=== PATIENT | female | born 1995 | race Caucasian/White ===

== ENCOUNTER 2020-05-13 12:32 | Outpatient (RCR) | payer BC, SELFPAY ==
[2020-05-13 13:05] VITALS: BP 120/74; PULSE 96
== END 2020-05-26 07:13 | disposition home or self-care (01) ==
LOC: ANHOBOP 12:32
PROVIDERS: PCP Family Medicine Adolescent Medicine; Visit Provider Obstetrics & Gynecology
DX: O36.0930 Maternal care for other rhesus isoimmunization, third trimester, not applicable or unspecified (principal); Z3A.37 37 weeks gestation of pregnancy
CPT/HCPCS: 59025

== ENCOUNTER 2020-05-17 23:00 | Inpatient (IN) | payer BC, SELFPAY ==
[2020-05-17 23:17] VITALS: BP 117/72; PULSE 94
[2020-05-17 23:45] VITALS: TEMP 36.8
[2020-05-17 23:53] LABS: Basophils Absolute Auto 0.1 K/mm3 (0.0-0.1); Basophils Percent Auto 0.3 % (0.2-1.2); Eosinophils Absolute Auto 0.1 K/mm3 (0-0.3); Eosinophils Percent Auto 0.5 % (0-4.4); Hematocrit 30.6 % (37.0-47.0); Immature Granulocyte Absolute 0.09 K/mm3 (0.00-0.031); Immature Granulocyte Percent A 0.6 % (0-0.5); Lymphocytes Absolute Auto 1.86 K/mm3 (0.9-3.2); Lymphocytes Percent Auto 12.3 % (18.3-44.2); Mean Corpuscular HGB Conc 32.7 g/dl (32-36); Mean Corpuscular Hemoglobin 27.7 pg (26-34); Mean Corpuscular Volume 84.8 fl (80-100); Mean Platelet Volume 9.7 fl (7.4-10.4); Monocytes Percent Auto 6.3 % (2.6-8.5); Neutrophils Absolute Auto 12.1 K/mm3 (1.3-6.7); Platelet Count Result 394 k/mm3 (150-375); Red Blood Count 3.61 M/mm3 (4.2-5.4); Red Cell Distribution Width 13.5 % (11.5-14.5); White Blood Count 15.1 K/mm3 (4.5-10.0)
[2020-05-17 23:59] VITALS: BMI 33.7
[2020-05-18] VITALS (83 sets, daily range): BP systolic 85–129; BP diastolic 41–108; PULSE 68–121; RESP 17; TEMP 36.6–37.2; O2SAT 99–100
--- NOTE | 2020-05-18 00:01 | LDADM ---
This patient, Carmen Landin, was admitted to Labor/Delivery/Recovery 104 on 05/17/20 at 23:00. Plans for labor, pain management and were discussed with patient. Patient/family oriented to hospital policies and general routines including ID bracelet, bed and alarms, visiting hours, pain management, procedures, bathroom and other care routines, personal items, smoking policy, room service/diet and guest tray routines, infant security routines, and visiting hours. Patient/Family are encouraged to report perceived risks to care and to ask questions if they do not understand what they are told or what they should do. See OBIX for further documentation.
--- NOTE | 2020-05-18 01:01 | WPDANESEPP ---
Anes - Eval Pre Procedure Procedure: labor epidural Date/Time: 05/18/20 01:01 Surgeon: fabby Pre Op Diagnosis: Leaking Patient Data Age: 24 Gender: F Height: 1.63 m Weight: 89 kg Last Vital Signs Temp 36.8 C 05/17/20 23:45 Pulse 94 05/17/20 23:17 BP 117/72 05/17/20 23:17 Allergies Allergy/AdvReac Type Severity Reaction Status Date / Time No Known Allergies Allergy Verified 04/27/20 13:42 Home Medications Medication Instructions Recorded Confirmed Type PNV [id number] 1 tablet PO DAILY 04/27/20 04/27/20 History [ Gummies] valacyclovir [Valtrex] 500 mg PO DAILY 04/27/20 05/17/20 History Laboratory Tests 05/17/20 05/17/20 23:47 23:47 WBC 15.1 K/mm3 H K/mm3 (4.5-10.0) RBC 3.61 M/mm3 L M/mm3 (4.2-5.4) Hgb 10.0 g/dL L g/dL (12.0-15.0) Hct 30.6 % L % (37.0-47.0) MCV 84.8 fl fl (80-100) MCH 27.7 pg pg (26-34) MCHC 32.7 g/dl g/dl (32-36) RDW 13.5 % % (11.5-14.5) Plt Count 394 k/mm3 H k/mm3 (150-375) MPV 9.7 fl fl (7.4-10.4) Immature Gran % (Auto) 0.6 % H % (0-0.5) Neut % (Auto) 80.0 % H % (45.5-73.1) Lymph % (Auto) 12.3 % L % (18.3-44.2) [place] % (Auto) 6.3 % % (2.6-8.5) Eos % (Auto) 0.5 % % (0-4.4) Baso % (Auto) 0.3 % % (0.2-1.2) Lymph # (Auto) 1.86 K/mm3 K/mm3 (0.9-3.2) [place] # (Auto) 1.0 K/mm3 H K/mm3 (0.1-0.6) Eos # (Auto) 0.1 K/mm3 K/mm3 (0-0.3) Baso # (Auto) 0.1 K/mm3 K/mm3 (0.0-0.1) Abs Immat Gran (auto) 0.09 K/mm3 H K/mm3 (0.00-0.031) Absolute Neuts (auto) 12.1 K/mm3 H K/mm3 (1.3-6.7) Absolute Nucleated RBC 0.0 K/mm3 K/mm3 (0.0-0.012) Nucleated RBC % 0.0 % % (0.0-0.2) RPR Pending Patient hx anesthesia problems: none Family hx anesthesia problems: none [facility] Family History Family History (Updated 04/27/20 @ 13:44 by Maryanne Enriquez RN) Other No pertinent family history Social History Social History Smoking status: Never smoker Substance use: never Gender identity (if verbalized by the patient): Female Spiritual care concerns: No Exam Day of Procedure 05/18/20 01:01
[2020-05-18] MEDS: LACTATED RINGERS 1,000 ML 125 ML IV CONT ×3 (02:02→08:07)
[2020-05-18] MEDS: OXYTOCIN 30 UNITS/NS 500 ML 30 UNITS/500 ML BAG IV CONT (02:02)
[2020-05-18 07:09] LABS: Rapid Plasma Reagin Non-Reactive (NonReactive)
--- NOTE | 2020-05-18 07:40 | WPDOBADMIT ---
Obstetrics - Admit Note Admission Note: 24 y/o G1 @ 38w4d here with srom. Cervix /-2 Forebag noted and ruptured Anticipate record reviewed. No pertinent additions to the history and/or any subsequent changes in the physical findings that are not consistent with the expected course of the were found. Additions to the history and/or subsequent changes in the physical findings follow. None.
[2020-05-18] MEDS: fentaNYL CITRATE INJ (*CRX) 100 MCG/2 ML VIAL 50 MCG IV PUSH (08:07)
[2020-05-18] MEDS: ONDANSETRON INJ 4 MG/2 ML VIAL IV PUSH (12:48)
[2020-05-18] MEDS: OXYTOCIN 30 UNITS/NS 500 ML 30 UNITS/500 ML BAG 125 UNITS IV CONT (16:49)
[2020-05-18] MEDS: IBUPROFEN 600 MG TABLET PO (18:57)
[2020-05-18] MEDS: BENZOCAINE 20% AER SPR (*SP) 56 GM CAN 1 SPRAY TOPICAL (18:58)
[2020-05-18] MEDS: WITCH HAZEL 40 PADS 1 PAD TOPICAL (18:58)
--- NOTE | 2020-05-18 19:20 | OBPPTRN ---
Patient transferred to post room #288 via wheelchair with in crib. Support person present. Oriented to unit, room, information board, rooming in, admission packet and security measures. Patient verbalizes understanding.
[2020-05-19 04:05] VITALS: BP 116/69; PULSE 89; RESP 15; TEMP 36.8
[2020-05-19 04:45] LABS: Hematocrit 27.5 % (37.0-47.0); Hemoglobin 8.7 g/dL (12.0-15.0)
--- NOTE | 2020-05-19 07:22 | PM.OBPNVD ---
OB - PN: Subj Subjective Date/time seen: 05/19/20 07:22 Patient comments: no complaints baby status: doing well OB - PN: Obj Data Labs CBC & Chem 7: 05/19/20 04:05 Labs: Laboratory Results - last 24 hr 05/19/20 04:05 Hgb 8.7 L Hct 27.5 L OB - PN A/P Plan day: 1 Plan: routine care and discharge home Time Spent With Patient Time: Total time spent is greater than 50% in coordination of care (as documented) at patient's floor/unit and/or counseling patient: Review of Systems Review of Systems: All systems reviewed & are unremarkable except as noted in HPI and below Exam Const: General: cooperative Orientation/consciousness: patient oriented x3 Psych: Affect: normal affect Thought process: Normal thought process present Thought content: Yes Normal thought content present Insight: Good insight present (Psych) Judgement: Good judgement present (Psych)
--- NOTE | 2020-05-19 07:24 | P.DS_ITS ---
DS: Admitting Diagnosis Admitting Diagnosis Admitting Diagnosis: labor OB - DS: Summary OB Procedures : None OB Procedures Intrapartum: Spontaneous Vag Delivery OB Procedures: : None Time Spent with Patient Time attestation: Total time spent providing and/or coordinating discharge services: DS: Data Data Completed and Pending Pending studies at discharge: Pending at discharge 05/18/20 16:27 Surgical [PTH] Routine Labs on day of discharge: Labs from last 24 hours 05/19/20 04:05 Hgb 8.7 L Hct 27.5 L Discharge Plan Discharge Attending physician on discharge: Sada Lima Discharging Clinician: Gaby Rabago Patient Disposition: Home, Self-Care Activity: pelvic rest Diet: regular Patient Instructions: Antibiotic Form Stand Alone Forms: General Discharge Information Follow-up/Referrals: Dimple Lerma CNM [Certified Nurse Supervisor [employer]] - 4 Weeks Discharge Medications: Continued valacyclovir [Valtrex] 500 mg Tablet 500 mg PO DAILY RF: 0 Gummies 400 mcg-35 mg- 25 mg-5 mg Tablet,Chewable 1 tablet PO DAILY RF: 0 Date of admission: 05/17/20 23:00 Primary Care Provider: Matthew Fink Admitting Provider: Sada Lima Attending physician on admission: Sada Lima Condition: Stable
--- NOTE | 2020-05-19 07:41 | WPDANLDPN2 ---
Anes-Prog Note L&D Date/Time: 05/19/20 07:41 Comfortable throughout: labor and delivery Neuraxial method: epidural Epidural/Spinal procedure site: clean & non-tender Neuro status: Neuro function grossly intact. Cardiovascular status: normal Respiratory status: normal Airway patency: baseline Mental status: baseline Post-Op hydration status: normal Vital Signs: Last Vital Signs Temp 36.8 C 05/19/20 04:05 Pulse 89 05/19/20 04:05 Resp 15 05/19/20 04:05 BP 116/69 05/19/20 04:05 Pulse Ox 100 05/18/20 09:13 Pain score (VAS): 0 I/O: Intake & Output 05/18/20 05/18/20 05/19/20 15:59 23:59 07:59 Intake Total 1000 Output Total 153 Balance 1000 -153 Post-procedural complaints: none Patient feedback: Patient satisfied with anesthetic care.
[2020-05-19 08:30] VITALS: BP 103/61; PULSE 96; RESP 18; TEMP 37.2; O2SAT 99
--- NOTE | 2020-05-19 10:55 | PC.NURSE ---
Mother called out for assist with feeding. Consulted with patient, mother reports has been sleepy with feedings. Mother has nipple discomfort with latch during first part of the feeding that quickly resolves. Reviewed nipple care of lanolin, warm compresses several times per day until tenderness resolves. Reviewed feeding cues, frequencies, duration of feedings, feeding elimination flow sheet, and signs of adequate intake. Demonstrated stimulation techniques to wake infant for feeding. Assisted with to breast. Reviewed positioning/alignment in cross cradle , holding breast in U hold and guided asymmetrical latch on. was able to latch within a few attempts. nursed eagerly, with steady draws and frequent swallowing noted. Latch was shallow. Reviewed signs of a correct latch, effective nursing and suck swallow ratio. was able to maintain latch. Mother reported tenderness at times, infant had slipped to shallow latch. Demonstrated how to adjust latch more deeply while feeding. Mother quickly reports she can feel is latched more deeply and has minimal tenderness. Suggested to stimulate infant while feeding to keep infant awake and nursing effectively for increased stimulation and increased intake. Instructed mother to call out for RN assistance if she is unable to latch for feeding or she has discomfort with nursing.
[2020-05-19 13:07] VITALS: BP 111/76; PULSE 95; RESP 18; TEMP 36.8; O2SAT 100
--- NOTE | 2020-05-19 13:30 | PC.NURSE ---
Mother reports she independently latched last feeding without difficulties or discomfort. Mother states she wishes to be discharged at 24 hours. Mother is feeding as required and waking infant to feed if needed. is currently meeting outcomes for, output, jaundice and feeding frequencies. Mother states she feels confident to continue effective at home. Reviewed transition to breast milk, signs of adequate intake, and engorgement/relief. Instructed to call ICP if intake/output less than required. Reviewed regular medications mother is taking. Information provided per Bonnie. Reviewed community resources on the [employer] website and in the Mom/Baby guide. Information on outpatient services provided. Mother has no further questions at this time.
[2020-05-19 16:00] VITALS: BP 112/71; PULSE 91; RESP 18; TEMP 36.8
[2020-05-19] MEDS: DOCUSATE SODIUM LIQ 100 MG/10 ML UDC PO (16:08)
[2020-05-19] MEDS: MULTIVIT W/ IRON, MINERALS 15 ML LIQUID (*BKC) PO (16:08)
[2020-05-19] MEDS: FERROUS SULFATE LIQUID 325 MG/7.4 ML ELIXIR PO (16:09)
[2020-05-20 07:49] VITALS: BP 107/64; PULSE 86; RESP 20; TEMP 37.1; O2SAT 99
--- NOTE | 2020-05-22 02:51 | PM.OBPRVD ---
OB - Delivery Note Procedure Delivery date: 05/18/20 Intrapartal events: None Induction method: none Delivery monitor: external FHT and external uterine Route of delivery: Episiotomy description: None Laceration Description: Labial (right labial) Delivery repair: vicryl Anesthesia type: Epidural Baby Date of : 05/18/20 Time of : 16:17 Weeks of gestation at delivery: 38 gender: Male Weight (pounds): 7 Weight (ounces): 9 presentation: vertex position: Right Occiput Anterior Placenta delivery description: Spontaneous cord vessel description: Delayed Cord Clamping score one minute: 9 score five minutes: 9
== END 2020-05-19 18:20 | disposition home or self-care (01) | DRG 807 ==
LOC: ANHLDR 23:52 → ANHOB2 05-18 19:22
PROVIDERS: Advanced Practice Midwife; Admitting Provider Obstetrics & Gynecology; PCP Family Medicine Adolescent Medicine; Visit Provider Obstetrics & Gynecology
DX: O71.82 Other specified trauma to perineum and vulva (principal); Z37.0 Single live birth; Z3A.38 38 weeks gestation of pregnancy
CPT/HCPCS: 36415; 85014; 85018; 85025; 86592; 86850; 86900; 86901; 88307; A9270; J2405; J2590; J2795; J3010; J7120

== ENCOUNTER 2022-04-11 14:10 | Emergency (ER) | payer BC, SELFPAY ==
--- NOTE | ~2022-04-11 | XR_ITS ---
XR chest 2V 04/11/2022 14:52 Indication: Cough and fever. Right rib pain. Procedure: 2 view chest Comparison: No prior studies for comparison. Findings: There is focal consolidation of the superior segment of the right lower lobe, consistent wi th pneumonia. No significant effusion. No pneumothorax. Heart size normal. No acute osseous abnormali ty. Impression: 1: Right lower lobe consolidation, compatible with pneumonia. Reviewed, dictated and finalized at location A. K SETTER OPERATOR Impression: 1: Right lower lobe consolidation, compatible with pneumonia.
[2022-04-11 14:24] VITALS: BP 134/101; PULSE 117; RESP 18; TEMP 38.6; O2SAT 97
[2022-04-11 15:29] LABS: Basophils Absolute Auto 0.1 K/mm3 (0.0-0.1); Basophils Percent Auto 0.3 % (0.2-1.2); Eosinophils Absolute Auto 0.1 K/mm3 (0-0.3); Eosinophils Percent Auto 0.7 % (0-4.4); Hematocrit 40.1 % (37.0-47.0); Hemoglobin 13.9 g/dL (12.0-15.0); Immature Granulocyte Absolute 0.07 K/mm3 (0.00-0.031); Immature Granulocyte Percent A 0.4 % (0-0.5); Lymphocytes Absolute Auto 1.18 K/mm3 (0.9-3.2); Lymphocytes Percent Auto 7.2 % (18.3-44.2); Mean Corpuscular HGB Conc 34.7 g/dl (32-36); Mean Corpuscular Volume 89.3 fl (80-100); Mean Platelet Volume 9.2 fl (7.4-10.4); Monocytes Absolute Auto 0.9 K/mm3 (0.1-0.6); Monocytes Percent Auto 5.7 % (2.6-8.5); Neutrophils Percent Auto 85.7 % (45.5-73.1); Platelet Count Result 416 k/mm3 (150-375); Red Blood Count 4.49 M/mm3 (4.2-5.4); Red Cell Distribution Width 12.1 % (11.5-14.5); White Blood Count 16.4 K/mm3 (4.5-10.0)
[2022-04-11 15:39] LABS: Alanine Aminotransferase 17 U/L (6-35); Albumin Level 4.9 g/dL (3.5-5.1); Alkaline Phosphatase 79 U/L (38-126); Anion Gap 10 mmol/L (8-16); Aspartate Amino Transferase 25 U/L (14-36); Bilirubin,Total 0.7 mg/dL (0.2-1.3); Blood Urea Nitrogen 7 mg/dL (7-17); Calcium 9.2 mg/dL (8.4-10.2); Carbon Dioxide 29 mmol/L (22-30); Chloride 100 mmol/L (98-107); Estimated CRCL calculation 92 ml/min; Estimated Glomerular Filt Rate > 60; Glucose 98 mg/dL (65-110); Sodium 139 mmol/L (137-145)
[2022-04-11 16:03] LABS: Influenza A QL RT-PCR Negative (Negative); Influenza B QL RT-PCR Negative (Negative); SARS-CoV-2 RNA PCR Negative
--- NOTE | 2022-04-11 16:15 | ED.URI ---
HPI - URI/Sore Throat General Chief Complaint: Upper Respiratory Infection Stated Complaint: abdominal pain Time Seen by Provider: 04/11/22 15:52 History of Present Illness HPI Narrative: Patient is a 26-year-old female presenting with chest pain and cough. Patient states that she has had viral respiratory infections for the last week. States that she has been taking [id number] cough suppressants. States that she has had such severe coughing fits that she has vomited. States that this morning she woke up with right-sided lower chest pain that is worse with movement, coughing, deep breathing so she came in for evaluation. No palpitations or syncope. She denies significant shortness of breath. No leg swelling. No abdominal pain, diarrhea, dysuria. Related Data Home Medications Medication Instructions Recorded Confirmed PNV 153-FA 400 mcg-om3 35 mg-dha 1 tablet PO DAILY 04/27/20 04/27/20 25 mg-epa 5 mg-fish oil chew tablet ( Gummies) valacyclovir 500 mg tablet 500 mg PO DAILY 04/27/20 05/17/20 (Valtrex) Allergies Allergy/AdvReac Type Severity Reaction Status Date / Time No Known Allergies Allergy Verified 04/27/20 13:42 Review of Systems Review of Systems: All systems reviewed & are unremarkable except as noted in HPI and below PMFSH Family History Family History Other No pertinent family history Social History Social History Smoking status: Never smoker Substance use: never Gender identity (if verbalized by the patient): Female Spiritual care concerns: No Exam Narrative: GENERAL: Well-appearing, well-nourished, and in no acute distress. HEAD: Normocephalic, atraumatic. EYES: PERRLA and EOMI. ENT: Nares clear, no rhinorrhea or epistaxis. Mucous membranes moist. NECK: Supple. CHEST: Crackles right lung HEART: Tachycardic, regular rhythm; mild tenderness over lateral right lower ribs ABDOMEN: Soft, nontender, nondistended EXTREMITIES: Normal range of motion. No edema. SKIN: Warm, dry, no rash. NEURO: No focal deficits. Alert and oriented x3. PSYCH: Normal mood and affect. Course Vital Signs Vital signs: Vital Signs Temperature 101.4 F H 04/11/22 14:24 Pulse Rate 117 H 04/11/22 14:24 Respiratory Rate 18 04/11/22 14:24 Blood Pressure 134/101 H 04/11/22 14:24 Pulse Oximetry 97 04/11/22 14:24 Oxygen Delivery Room Air 04/11/22 14:24 Temperature 101.4 F H 04/11/22 14:24 Pulse Rate 92 04/11/22 17:56 Respiratory Rate 16 04/11/22 17:56 Blood Pressure 103/78 04/11/22 17:56 Pulse Oximetry 97 04/11/22 17:56 Oxygen Delivery Room Air 04/11/22 14:24 MDM - URI/Sore Throat MDM Narrative Medical decision making narrative: Patient is a 26-year-old female presenting with right-sided chest pain and cough. Patient is febrile and tachycardic in the 110s. Saturating well on room air. Exam remarkable for the above. Chest x-ray is concerning for pneumonia in her right lung. Blood work with leukocytosis. Fluids, antibiotics, Toradol have been ordered. On reevaluation, the patient is resting comfortably. Her heart rate has normalized following fluids and Toradol. Advise close PCP follow-up. Discussed appropriate supportive care. Appropriate return precautions given. Antibiotics sent to her pharmacy. Discharged in stable condition. Differential Diagnosis Differential diagnosis: Likely upper respiratory infection, sinusitis, viral infection, bronchitis, influenza and pharyngitis Lab Data 04/11/22 15:20 04/11/22 15:20 Labs: Lab Results 04/11/22 04/11/22 04/11/22 Range/Units 15:20 15:20 15:20 WBC 16.4 H (4.5-10.0) K/mm3 RBC 4.49 (4.2-5.4) M/mm3 Hgb 13.9 D (12.0-15.0) g/dL Hct 40.1 (37.0-47.0) % MCV 89.3 (80-100) fl MCH 31.0 (26-34) pg MCHC 34.7 (32-36) g
[2022-04-11] MEDS: KETOROLAC 15 MG/ML VIAL (*BKC) IV PUSH (16:34)
[2022-04-11] MEDS: SODIUM CHLORIDE 0.9% IV 1,000 ML 999 ML IV CONT (16:35)
[2022-04-11] MEDS: AMPICILLIN SULB 1.5 GM/NS 50ML 1.5 GM/50 ML VIAL IVPB (16:36)
[2022-04-11 17:56] VITALS: BP 103/78; PULSE 92; RESP 16; O2SAT 97
== END 2022-04-11 18:52 | disposition home or self-care (01) ==
PROVIDERS: Emergency Provider Emergency Medicine; PCP Family Medicine Adolescent Medicine
DX: J18.9 Pneumonia, unspecified organism (principal); Z20.822 Contact with and (suspected) exposure to COVID-19
CPT/HCPCS: 36415; 71046; 80053; 85025; 87636; 96365; 96366; 96368; 96375; 99284; J0295; J0456; J1885; J7030

== ENCOUNTER 2022-10-27 22:23 | Emergency (ER) | payer BC, SELFPAY ==
[2022-10-27 22:25] VITALS: BP 123/88; PULSE 110; RESP 18; TEMP 36.1; O2SAT 100
[2022-10-27 22:49] LABS: Basophils Absolute Auto 0.1 K/mm3 (0.0-0.1); Basophils Percent Auto 0.3 % (0.2-1.2); Eosinophils Percent Auto 0.1 % (0-4.4); Hematocrit 42.4 % (37.0-47.0); Hemoglobin 15.1 g/dL (12.0-15.0); Immature Granulocyte Percent A 0.6 % (0-0.5); Lymphocytes Absolute Auto 2.24 K/mm3 (0.9-3.2); Lymphocytes Percent Auto 12.8 % (18.3-44.2); Mean Corpuscular HGB Conc 35.6 g/dl (32-36); Mean Corpuscular Hemoglobin 31.9 pg (26-34); Mean Corpuscular Volume 89.5 fl (80-100); Mean Platelet Volume 10.1 fl (7.4-10.4); Monocytes Percent Auto 5.7 % (2.6-8.5); Neutrophils Absolute Auto 14.1 K/mm3 (1.3-6.7); Neutrophils Percent Auto 80.5 % (45.5-73.1); Platelet Count Result 427 k/mm3 (150-375); Red Blood Count 4.74 M/mm3 (4.2-5.4); Red Cell Distribution Width 11.8 % (11.5-14.5); White Blood Count 17.5 K/mm3 (4.5-10.0)
[2022-10-27 22:56] LABS: Appearance Urine Cloudy (Clear); Bacteria Urine 1+ /hpf; Bilirubin Urine Negative (Negative); Blood Urine Negative (Negative); Color Urine Yellow (Yellow); Glucose Urine UA Negative (Negative); Ketones Urine 4+ mg/dL (Negative); Leukocyte Esterase Ur Trace LEU/UL (Negative); Nitrate Urine Negative (Negative); Protein Urine 1+ mg/dL (Negative); RBC Urine 0-2 /hpf (0-2); Specific Grav Ur 1.026 (1.001-1.035); Squamous Epithelial Cell Urine Many /hpf (Few); WBC Urine 0-5 /hpf; pH Urine 5.5 (5.0-9.0)
[2022-10-27 23:01] LABS: Alanine Aminotransferase 15 U/L (6-35); Albumin Level 5.2 g/dL (3.5-5.1); Alkaline Phosphatase 63 U/L (38-126); Anion Gap 19 mmol/L (8-16); Aspartate Amino Transferase 23 U/L (14-36); Bilirubin,Total 1.4 mg/dL (0.2-1.3); Blood Urea Nitrogen 11 mg/dL (7-17); Calcium 9.9 mg/dL (8.4-10.2); Carbon Dioxide 17 mmol/L (22-30); Chloride 96 mmol/L (98-107); Estimated CRCL calculation 106 ml/min; Estimated Glomerular Filt Rate > 60; Glucose 102 mg/dL (65-110); Lipase 517 U/L (23-300); Potassium 4.1 mmol/L (3.4-5.0); Sodium 132 mmol/L (137-145)
[2022-10-27 23:21] LABS: Add Urine Microscopic? YES
[2022-10-28 04:17] VITALS: BP 108/77; PULSE 77; RESP 15; TEMP 36.9; O2SAT 99
[2022-10-28] MEDS: METOCLOPRAMIDE HCL INJ 10 MG/2 ML VIAL IV PUSH (05:27)
[2022-10-28] MEDS: ONDANSETRON INJ 4 MG/2 ML VIAL IV PUSH (05:28)
--- NOTE | 2022-10-28 07:12 | ED.GENADULT ---
HPI - General Adult General Chief complaint: Nausea/Vomiting/Diarrhea Stated complaint: dehydration Time Seen by Provider: 10/28/22 04:33 History of Present Illness HPI narrative: This is a at 6 weeks gestation presenting ED with nausea vomiting x3 days. Patient has been unable to keep down water. She eventually called her primary care physician and was instructed to come to the hospital. The patient denies fever chills, congestion diarrhea abdominal pain vaginal bleeding or urinary symptoms. Related Data Allergies Allergy/AdvReac Type Severity Reaction Status Date / Time No Known Allergies Allergy Verified 10/27/22 22:23 [facility] Family History Family History Other No pertinent family history Social History Social History Smoking status: Never smoker Substance use: never Gender identity (if verbalized by the patient): Female Spiritual care concerns: No Exam Narrative: APPEARANCE: No apparent distress. Head: atraumatic. EYES: EOMI, NOSE: Atraumatic NECK: Trachea midline RESPIRATORY: No increased rate of breathing CARDIOVASCULAR: RRR, ABDOMINAL: Non-distended Soft nontender no guarding or rebound point of care OB ultrasound revealed a pole with visible heart rate. Too small to measure with transabdominal ultrasound. MUSCULOSKELETAl: No obvious deformities NEURO: Alert. Moving 4/4 extremities SKIN:: Warm, dry. Normal color PSYCHIATRIC: Normal affect Course Vital Signs Vital signs: Vital Signs Temperature 97 F L 10/27/22 22:25 Pulse Rate 110 H 10/27/22 22:25 Respiratory Rate 18 10/27/22 22:25 Blood Pressure 123/88 10/27/22 22:25 Pulse Oximetry 100 10/27/22 22:25 Oxygen Delivery Room Air 10/27/22 22:25 Temperature 98.4 F 10/28/22 04:17 Pulse Rate 77 10/28/22 04:17 Respiratory Rate 15 10/28/22 04:17 Blood Pressure 108/77 10/28/22 04:17 Pulse Oximetry 99 10/28/22 04:17 Oxygen Delivery Room Air 10/27/22 22:25 Medical Decision Making MDM Narrative Medical decision making narrative: -Course: 26-year-old female presenting with persistent nausea and vomiting. Lab work was consistent with hyperemesis gravidarum. Patient was given 2 L of fluid and antiemetics. She is now able to tolerate p.o.. On re-evaluation patient's vital signs are stable. She is resting comfortably. Patient is comfortable going home with antiemetics and following up with her OBGYN. -DDX includes but is not limited to: Hyperemesis gravidarum, nausea vomiting of , viral syndrome -Co-morbidities complicating care: 6 weeks -Social determinants of health: housewife, lives with her . -Hx from independent Sources: bedside -Independent interpretation of studies: White blood cell count 17.5. No evidence of infection at this time. urine was positive for ketones. Patient was slightly acidotic with mild anion gap. Beta hCG 115,000. point of care Ob ultrasound showed a pole with flickering heart rate although is too sma to measure. Urine not indicative infection. -Interventions: 2 L D5 normal saline, 25 mg IV vitamin B6, 4 mg Zofran, 10 mg of Reglan -Shared decision making / Disposition: discharged -RX Zofran ODT, vitamin B6, doxylamine Vital Signs Vital Signs: Vital Signs Temperature 97 F L 10/27/22 22:25 Pulse Rate 110 H 10/27/22 22:25 Respiratory Rate 18 10/27/22 22:25 Blood Pressure 123/88 10/27/22 22:25 Pulse Oximetry 100 10/27/22 22:25 Oxygen Delivery Room Air 10/27/22 22:25 Temperature 98.4 F 10/28/22 04:17 Pulse Rate 77 10/28/22 04:17 Respiratory Rate 15 10/28/22 04:17 Blood Pressure 108/77 10/28/22 04:17 Pulse Oximetry 99 10/28/22 04:17 Oxygen Delivery Room Air 10/27/22 22:25 Lab Data 10/27/22 22:30 10/27/22 22:30 Labs: Lab Results
[2022-10-28] MEDS: PYRIDOXINE HCL 100 MG/ML VIAL (*SPC) 25 MG IV PUSH (08:15)
[2022-10-28 08:31] VITALS: BP 110/78; PULSE 80; RESP 16; TEMP 36.8; O2SAT 99
== END 2022-10-28 08:35 | disposition home or self-care (01) ==
PROVIDERS: Emergency Provider Emergency Medicine; PCP Family Medicine Adolescent Medicine
DX: O21.0 Mild hyperemesis gravidarum (principal); Z3A.01 Less than 8 weeks gestation of pregnancy
CPT/HCPCS: 36415; 80053; 81001; 83690; 84702; 85025; 96361; 96374; 96375; 99284; J2405; J2765; J3415; J7042

== ENCOUNTER 2023-04-09 17:11 | Observation (INO) | payer OTHER, SELFPAY ==
[2023-04-09] VITALS (8 sets, daily range): BP systolic 108–113; BP diastolic 60–71; PULSE 92–102; TEMP 36.3; BMI 30.4
--- NOTE | 2023-04-09 17:47 | OBADM ---
This patient, Carmen Auguste, admitted to the OB room OB Post 113 for observation. Patient/family oriented to hospital policies and general routines including ID bracelet, bed and alarms, visiting hours, pain management, procedures, bathroom and other care routines, personal items, smoking policy, room service/diet, and visiting hours. Patient/Family are encouraged to report perceived risks to care and to ask questions if they do not understand what they are told or what they should do.
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
== END 2023-04-09 23:39 | disposition home or self-care (01) ==
PROVIDERS: Admitting Provider Obstetrics & Gynecology; PCP Family Medicine Adolescent Medicine; Visit Provider Obstetrics & Gynecology
DX: Z04.1 Encounter for examination and observation following transport accident (principal); O26.893 Other specified pregnancy related conditions, third trimester; Z3A.30 30 weeks gestation of pregnancy
CPT/HCPCS: G0378; G0379

== ENCOUNTER 2023-05-28 05:46 | Outpatient (CLI) | payer BC, SELFPAY ==
[2023-05-28 06:16] VITALS: BP 107/62; PULSE 86
[2023-05-28 06:30] VITALS: BP 109/62; PULSE 85
[2023-05-28] MEDS: LACTATED RINGERS 1,000 ML 999 ML IV CONT (06:30)
[2023-05-28 06:45] VITALS: BP 113/74; PULSE 87
[2023-05-28 06:48] LABS: Basophils Absolute Auto 0.1 K/mm3 (0.0-0.1); Basophils Percent Auto 0.4 % (0.2-1.2); Eosinophils Absolute Auto 0.1 K/mm3 (0-0.3); Eosinophils Percent Auto 0.9 % (0-4.4); Hemoglobin 9.5 g/dL (12.0-15.0); Immature Granulocyte Percent A 0.7 % (0-0.5); Lymphocytes Absolute Auto 2.03 K/mm3 (0.9-3.2); Lymphocytes Percent Auto 14.5 % (18.3-44.2); Mean Corpuscular HGB Conc 32.8 g/dl (32-36); Mean Corpuscular Hemoglobin 28.8 pg (26-34); Mean Corpuscular Volume 87.9 fl (80-100); Mean Platelet Volume 9.8 fl (7.4-10.4); Monocytes Absolute Auto 0.8 K/mm3 (0.1-0.6); Monocytes Percent Auto 5.8 % (2.6-8.5); Neutrophils Absolute Auto 10.9 K/mm3 (1.3-6.7); Neutrophils Percent Auto 77.7 % (45.5-73.1); Platelet Count Result 360 k/mm3 (150-375); Red Cell Distribution Width 13.1 % (11.5-14.5)
--- NOTE | 2023-05-28 06:57 | PM.IMHP ---
H&P: HPI History of Present Illness Date/Time: 05/28/23 06:57 Chief Complaint: pt here for external version. last appt fetus was breech. today on US, vertex presentation. will cancel procedure and pt to be discharged home. complicated by history of HSV, taking valtrex daily, and LGA with abdomen >90%, pt has been checking blood sugars and on review today all are wnl. Review of Systems Review of Systems: All systems reviewed & are unremarkable except as noted in HPI and below PMFSH Family History Family History Other No pertinent family history Social History Social History Smoking status: Never smoker Substance use: never Gender identity (if verbalized by the patient): Female Spiritual care concerns: No Meds Home Medications and Allergies Home Medications Medication Instructions Recorded Confirmed Type prenat.vits,jelly,sst-uzxd-sjzsa 1 tablet PO DAILY 04/09/23 05/28/23 History valacyclovir 500 mg tablet 500 mg PO DAILY 05/14/23 05/28/23 History (Valtrex) Allergies Allergy/AdvReac Type Severity Reaction Status Date / Time No Known Allergies Allergy Verified 05/14/23 12:32 Vital Signs Vital Signs - 24 hr 05/28/23 06:16 05/28/23 06:30 05/28/23 06:45 Pulse Rate 86 85 87 Blood Pressure 107/62 109/62 113/74 Exam Narrative: bedside US, fetus vertex position Const: General: cooperative Chest: Chest palpation & inspection: normal inspection of the chest Resp: Effort & Inspection: normal respiratory effort Cardio: Rate: regular rate GI: Other: soft, gravid Back/Spine/Pelvis: Back: no CVA tenderness Skin: General skin exam: normal color Neuro: General: patient oriented x3 Extrem: Right lower extremity: normal to inspection Left lower extremity: normal to inspection H&P: Results Labs Labs: Short CBC 05/28/23 Range/Units 06:35 WBC 14.0 H (4.5-10.0) K/mm3 Hgb 9.5 L D (12.0-15.0) g/dL Hct 29.0 L (37.0-47.0) % Plt Count 360 (150-375) k/mm3 Assessment and Plan Assessment and plan (1) Vertex presentation of fetus: Code(s): Z34.90 - Encounter for supervision of normal , unspecified, unspecified trimester Status: Acute Plan 1. vertex presentation precautions reviewed pt discharged home
[2023-05-28 07:00] VITALS: BP 106/61; PULSE 82
[2023-05-28 08:25] VITALS: BP 113/74; PULSE 79
--- NOTE | 2023-05-28 08:25 | PC.NURSE ---
[id number] Glen Rabago did US bedside fetus now vertex. ok to do NST and discharge patient after. No new orders to follow up in office on scheduled appointment day.
== END 2023-05-28 07:10 ==
LOC: ANHOBOP 05:51 → ANHOBPP 06-02 06:34
PROVIDERS: PCP Family Medicine Adolescent Medicine; Visit Provider Obstetrics & Gynecology
DX: Z34.90 Encounter for supervision of normal pregnancy, unspecified, unspecified trimester (principal)
CPT/HCPCS: 36415; 59025; 85025; 99199; J7120

== ENCOUNTER 2023-06-13 06:00 | Inpatient (IN) | payer BC, SELFPAY ==
[2023-06-13] VITALS (88 sets, daily range): BP systolic 73–127; BP diastolic 29–88; PULSE 68–116; RESP 16–18; TEMP 36.1–37; O2SAT 95–100; BMI 34.8
[2023-06-13 06:50] LABS: Basophils Percent Auto 0.2 % (0.2-1.2); Eosinophils Absolute Auto 0.1 K/mm3 (0-0.3); Eosinophils Percent Auto 0.6 % (0-4.4); Hematocrit 33.9 % (37.0-47.0); Hemoglobin 11.1 g/dL (12.0-15.0); Immature Granulocyte Absolute 0.11 K/mm3 (0.00-0.031); Immature Granulocyte Percent A 0.8 % (0-0.5); Lymphocytes Absolute Auto 1.93 K/mm3 (0.9-3.2); Lymphocytes Percent Auto 13.9 % (18.3-44.2); Mean Corpuscular HGB Conc 32.7 g/dl (32-36); Mean Corpuscular Hemoglobin 29.5 pg (26-34); Mean Corpuscular Volume 90.2 fl (80-100); Monocytes Absolute Auto 0.7 K/mm3 (0.1-0.6); Monocytes Percent Auto 4.8 % (2.6-8.5); Neutrophils Absolute Auto 11.1 K/mm3 (1.3-6.7); Neutrophils Percent Auto 79.7 % (45.5-73.1); Platelet Count Result 354 k/mm3 (150-375); Red Blood Count 3.76 M/mm3 (4.2-5.4); Red Cell Distribution Width 17.3 % (11.5-14.5); White Blood Count 13.9 K/mm3 (4.5-10.0)
--- NOTE | 2023-06-13 06:50 | LDADM ---
This patient, Carmen Auguste, was admitted to Labor/Delivery/Recovery 106 on 06/13/23 at 06:00. Plans for labor, pain management and were discussed with patient. Patient/family oriented to hospital policies and general routines including ID bracelet, bed and alarms, visiting hours, pain management, procedures, bathroom and other care routines, personal items, smoking policy, room service/diet and guest tray routines, infant security routines, and visiting hours. Patient/Family are encouraged to report perceived risks to care and to ask questions if they do not understand what they are told or what they should do. See OBIX for further documentation.
--- NOTE | 2023-06-13 07:09 | WPDANESEPP ---
Anes - Eval Pre Procedure Procedure: Labor Epidural Date/Time: 06/13/23 07:09 Surgeon: Clarence Preop Diagnosis: Labor Pain Pre Op Diagnosis: IOL Patient Data Age: 27 Gender: F Height: 1.63 m Weight: 92 kg Last Vital Signs Temp 36.1 C L 06/13/23 06:30 Pulse 87 06/13/23 06:30 Resp 18 06/13/23 06:30 BP 113/67 06/13/23 06:30 O2 Del Method Room Air 06/13/23 06:47 Allergies Allergy/AdvReac Type Severity Reaction Status Date / Time No Known Allergies Allergy Verified 05/14/23 12:32 Home Medications Medication Instructions Recorded Confirmed Type prenat.vits,jelly,bdh-qwtn-oxjch 1 tablet PO DAILY 04/09/23 05/28/23 History valacyclovir 500 mg tablet 500 mg PO DAILY 05/14/23 05/28/23 History (Valtrex) Laboratory Tests 06/13/23 06:23 WBC 13.9 H K/mm3 (4.5-10.0) RBC 3.76 L M/mm3 (4.2-5.4) Hgb 11.1 L g/dL (12.0-15.0) Hct 33.9 L % (37.0-47.0) MCV 90.2 fl (80-100) MCH 29.5 pg (26-34) MCHC 32.7 g/dl (32-36) RDW 17.3 H % (11.5-14.5) Plt Count 354 k/mm3 (150-375) MPV 10.0 fl (7.4-10.4) Immature Gran % (Auto) 0.8 H % (0-0.5) Neut % (Auto) 79.7 H % (45.5-73.1) Lymph % (Auto) 13.9 L % (18.3-44.2) [place] % (Auto) 4.8 % (2.6-8.5) Eos % (Auto) 0.6 % (0-4.4) Baso % (Auto) 0.2 % (0.2-1.2) Lymph # (Auto) 1.93 K/mm3 (0.9-3.2) [place] # (Auto) 0.7 H K/mm3 (0.1-0.6) Eos # (Auto) 0.1 K/mm3 (0-0.3) Baso # (Auto) 0.0 K/mm3 (0.0-0.1) Abs Immat Gran (auto) 0.11 H K/mm3 (0.00-0.031) Absolute Neuts (auto) 11.1 H K/mm3 (1.3-6.7) Absolute Nucleated RBC 0.000 K/mm3 (0.0-0.012) Nucleated RBC % 0.0 % (0.0-0.2) RPR Pending : gestational age (CRUZ 06/13/23, ) Patient hx anesthesia problems: none Family hx anesthesia problems: none Results Review: All pre-operative results and documents have been reviewed as part of the pre-operative evaluation. [facility] Family History Family History Other No pertinent family history Social History Social History Smoking status: Never smoker Substance use: never Do You Feel Safe in your Home?: Yes Lack of Transportation: No Lack of Food: Never True Current Housing: I Have Housing Concerned About Future Housing: No Difficulty Paying Gas/Electric Bills: No Difficulty Paying for Meds: No Currently Unemployed: No Education: High School Diploma/GED Difficulty w/ Childcare or Family Care: No Gender identity (if verbalized by the patient): Female Spiritual care concerns: No Exam Day of Procedure 06/13/23 07:09 Patient weight: normal Heart: regular rate and rhythm Lungs: normal air movement Airway: Mallampati scale class II Neurological: alert and oriented
[2023-06-13] MEDS: LACTATED RINGERS 1,000 ML 125 ML IV CONT ×2 (07:16→10:16)
[2023-06-13] MEDS: OXYTOCIN 30 UNITS/NS 500 ML 30 UNITS/500 ML BAG IV CONT (07:26)
--- NOTE | 2023-06-13 07:26 | WPDOBADMIT ---
Obstetrics - Admit Note Admission Note: record reviewed. No pertinent additions to the history and/or any subsequent changes in the physical findings that are not consistent with the expected course of the were found. Additions to the history and/or subsequent changes in the physical findings follow. IOL, 40 weeks gestation, vtx by US, SVE /-2 AROM moderate amount of clear, odorless fluid, anticipate vaginal delivery
[2023-06-13 11:09] LABS: Rapid Plasma Reagin Non-Reactive (NonReactive)
--- NOTE | 2023-06-13 14:15 | P.PCNOB_ITS ---
OB - Vaginal Delivery Note Procedure Delivery date: 06/13/23 Induction method: AROM and Per Pitocin Protocol Delivery monitor: External FHT and External Uterine Route of delivery: Episiotomy description: None Laceration Description: None Specimen: No Quantitative Blood Loss (ml): 100 Anesthesia type: Epidural Disposition: Floor Complications: None [place] Baby Date of : 06/13/23 Time of : 14:06 Weeks of gestation at delivery: 40 Infant gender: Male presentation: vertex position: Right Occiput Posterior Placenta delivery description: Spontaneous Cord Vessel Description: 3 Vessels score one minute: 9 score five minutes: 9 Narrative: mother and baby skin to skin in stable condition
[2023-06-13] MEDS: OXYTOCIN 30 UNITS/NS 500 ML 30 UNITS/500 ML BAG 125 UNITS IV CONT (14:40)
--- NOTE | 2023-06-13 16:50 | OBPPTRN ---
Patient transferred to post room # 282 via wheelchair. Support person present. Oriented to unit, room, information board, rooming in, admission packet and security measures. Patient verbalizes understanding.
[2023-06-14 00:15] VITALS: BP 107/61; PULSE 77; RESP 18; TEMP 36.6; O2SAT 99
[2023-06-14 04:23] LABS: Hematocrit 32.9 % (37.0-47.0); Hemoglobin 10.6 g/dL (12.0-15.0)
[2023-06-14 07:10] VITALS: BP 111/73; PULSE 88; RESP 18; TEMP 36.6; O2SAT 99
--- NOTE | 2023-06-14 08:45 | PM.OBPNVD ---
OB - PN: Subj Subjective Date/time seen: 06/14/23 08:45 Interval history: pp day 1 doing well would like to d/c home OB - PN: Obj Data Labs 06/14/23 04:17 Labs: Laboratory Results - last 24 hr 06/13/23 06/14/23 06:23 04:17 Hgb 10.6 L Hct 32.9 L RPR Non-reactive OB - PN A/P Plan day: 1 Plan: routine care and discharge home Time Spent With Patient Time: Total time spent is greater than 50% in coordination of care (as documented) at patient's floor/unit and/or counseling patient: Review of Systems Review of Systems: All systems reviewed & are unremarkable except as noted in HPI and below Exam Const: General: cooperative and healthy appearing Resp: Effort & Inspection: normal respiratory effort Cardio: Rate: regular rate GI: Other: soft Skin: General skin exam: normal color Neuro: General: patient oriented x3
--- NOTE | 2023-06-14 08:47 | PM.OBDSVD ---
DS: Admitting Diagnosis Discharge Date 06/14/23 Admitting Diagnosis IOL DS: Discharge Diagnosis Discharge Diagnosis (1) Vaginal delivery: Code(s): O80 - Encounter for full-term uncomplicated delivery Status: Acute OB - DS: Summary OB Procedures : None OB Procedures Intrapartum: Spontaneous Vag Delivery OB Procedures: : None Peripartum Data Laceration Description: None Episiotomy description: None Time Spent with Patient Time attestation: Total time spent providing and/or coordinating discharge services: DS: Data Data Completed and Pending Labs on day of discharge: Labs from last 24 hours 06/14/23 06/13/23 04:17 06:23 Hgb 10.6 L Hct 32.9 L RPR Non-reactive Discharge Plan Discharge Attending physician on discharge: Sada Lima Discharging Clinician: Gaby Rabago Patient Disposition: Home, Self-Care Activity: pelvic rest Diet: regular Patient Instructions: Antibiotic Form Stand Alone Forms: General Discharge Information Follow-up/Referrals: Gaby Rabago, CNM [Certified Nurse [employer]] - 4 Weeks Discharge Medications: New ibuprofen 600 mg Tablet 600 mg PO Q6H PRN (Reason: Cramping) Qty: 30 0RF Continued prenat.vits,jelly,qit-yast-[id number] Tablet 1 tablet PO DAILY Discontinued valacyclovir [Valtrex] 500 mg Tablet 500 mg PO DAILY Date of admission: 06/13/23 06:00 Primary Care Provider: Matthew Fink Admitting Provider: Sada Lima Attending physician on admission: Sada Lima Condition: Stable
[2023-06-14] MEDS: DOCUSATE SODIUM 100 MG CAPSULE PO (09:58)
[2023-06-14] MEDS: MULTIVIT/MIN/PREN/FOL AC/IRON TABLET 1 TAB PO (09:58)
--- NOTE | 2023-06-14 11:58 | WPDANLDPN2 ---
Anes-Prog Note L&D Date/Time: 06/14/23 11:58 Comfortable throughout: labor and delivery Neuraxial method: epidural Epidural/Spinal procedure site: clean & non-tender Neuro status: Neuro function grossly intact. Cardiovascular status: normal Respiratory status: normal Airway patency: baseline Mental status: baseline Post-Op hydration status: normal Vital Signs: Last Vital Signs Temp 36.6 C 06/14/23 07:10 Pulse 88 06/14/23 07:10 Resp 18 06/14/23 07:10 BP 111/73 06/14/23 07:10 Pulse Ox 99 06/14/23 07:10 O2 Del Method Room Air 06/13/23 06:47 Pain score (VAS): 0 I/O: Intake & Output 06/13/23 06/14/23 06/14/23 23:59 07:59 15:59 Intake Total 500 Balance 500 Post-procedural complaints: none Patient feedback: Patient satisfied with anesthetic care.
[2023-06-16 11:12] VITALS: BP 122/61; PULSE 82; RESP 18; TEMP 36.6; O2SAT 100
== END 2023-06-14 15:10 | disposition home or self-care (01) | DRG 807 ==
LOC: ANHLDR 06:03 → ANHOB2 16:57
PROVIDERS: Advanced Practice Midwife; Admitting Provider Obstetrics & Gynecology; PCP Family Medicine Adolescent Medicine; Visit Provider Obstetrics & Gynecology
DX: O80 Encounter for full-term uncomplicated delivery (principal); Z37.0 Single live birth; Z3A.40 40 weeks gestation of pregnancy
CPT/HCPCS: 36415; 85014; 85018; 85025; 86592; 86850; 86900; 86901; A9270; J2590; J2795; J7120